=== PATIENT | female | born 1995 | race Caucasian/White ===

== ENCOUNTER 2023-12-19 10:06 | Emergency (ER) | payer OTHER ==
[~2023-12-19] VITALS: Ht 162.6 cm; Wt 113.4 kg
[2023-12-19 10:10] VITALS: BP_SYST 136; PULSE 100; RESP 18; TEMP 98.4; O2SAT 98
[2023-12-19] MEDS: IBUPROFEN 600 MG TABLET PO ONE (10:36)
[2023-12-19] MEDS ORDERED: IBUP-1969 PO (10:50)
[2023-12-19 11:00] VITALS: BP_SYST 128; PULSE 78; RESP 16; TEMP 97.4; O2SAT 99
== END 2023-12-19 10:58 | disposition home or self-care (01) ==
LOC: SED 10:06
DX: S53.492A Other sprain of left elbow, initial encounter (principal); R20.2 Paresthesia of skin; Z79.899 Other long term (current) drug therapy; X50.0XXA Overexertion from strenuous movement or load, initial encounter; Y93.89 Activity, other specified; Y92.89 Other specified places as the place of occurrence of the external cause; Y99.8 Other external cause status
CPT/HCPCS: 99283